=== PATIENT | female | born 1990 | race African-American/Black ===

== ENCOUNTER 2019-12-10 11:31 | Emergency (ER) | payer SELFPAY ==
[2019-12-10 11:31] VITALS: BP 136/93; PULSE 89; RESP 16; TEMP 36.6; O2SAT 99; BMI 30.3
== END 2019-12-10 14:59 | disposition left against medical advice (07) ==
PROVIDERS: Emergency Provider Emergency Medicine
DX: R51 Headache (principal); Z53.21 Procedure and treatment not carried out due to patient leaving prior to being seen by health care provider